=== PATIENT | male | born 2000 | race Caucasian/White ===

== ENCOUNTER 2019-07-07 12:28 | Emergency (ER) | payer OTHER ==
[~2019-07-07] VITALS: Ht 182.9 cm; Wt 101.6 kg
[~2019-07-07 12:28] MED LIST: ADDERALL 10 MG10 MG PO; CONCERTA36 M1; HYDROXYZINE HCL25 M1 PO; IBUPROFEN 800800 M1 PO; NORCO 5-325 TA1 EACH PO
[2019-07-07] MEDS ORDERED: NAPROSYN500 MG PO (13:39)
[2019-07-07 13:53] VITALS: BP 123/76
== END 2019-07-07 13:55 | disposition home or self-care (01) ==
LOC: M.ERS 12:28
DX: S06.0X0A Concussion without loss of consciousness, initial encounter (principal); F90.9 Attention-deficit hyperactivity disorder, unspecified type; V89.2XXA Person injured in unspecified motor-vehicle accident, traffic, initial encounter; Y93.89 Activity, other specified; Y92.89 Other specified places as the place of occurrence of the external cause; Y99.8 Other external cause status

== ENCOUNTER 2020-12-08 07:43 | Emergency (ER) | payer OTHER ==
[~2020-12-08] VITALS: Ht 182.9 cm; Wt 104.3 kg
[~2020-12-08 07:43] MED LIST changes: +NAPROSYN500 MG PO
[2020-12-08] MEDS ORDERED: BUTALB-APAP-CA1 EACH PO (09:05)
[2020-12-08 09:16] VITALS: BP 119/62
== END 2020-12-08 09:17 | disposition home or self-care (01) ==
LOC: M.ERS 07:43
DX: S06.0X0A Concussion without loss of consciousness, initial encounter (principal); V49.59XA Passenger injured in collision with other motor vehicles in traffic accident, initial encounter; Y93.89 Activity, other specified; Y92.89 Other specified places as the place of occurrence of the external cause; Y99.8 Other external cause status